=== PATIENT | male | born 1975 | race Caucasian/White ===

== ENCOUNTER 2017-04-25 23:33 | Inpatient (IN) | payer OTHER ==
[~2017-04-25] VITALS: Ht 167.6 cm; Wt 105.0 kg
--- NOTE | 2017-04-26 00:05 | EMERGENCY ROOM VISIT NOTE ---
History Report prepared by Scribe: Rianna Humphries Under the Supervision of: Dr. Benji Hobbs D.O. First contact with patient: 23:35 Chief Complaint: MENTAL HEALTH EVALUATION Stated Complaint: MENTAL HEALTH History of Present Illness The patient is a 41 year old male who presents to the Emergency Room for a mental health evaluation. The patient was brought in by EMS from a [employer] bus stop. The patient is from [place]. He states he was on a bus trip trying to get to [place] when he became paranoid, depressed, anxious, and suicidal because he was "receiving threats". He also states that he gets threatened because he is homosexual. The patient has a history of schizophrenia, anxiety, depression, and paranoia. He states he has tried every psychiatric medication and none of them have worked. Per patient's luggage, he is coming from [facility]. Source of History: patient History Limited By: other (patient's condtion) Review of Systems ROS limited secondary to patient's mental status. Past Medical & Surgical Medical Problems: (1) Anxiety (2) Depression (3) Paranoia (4) Schizophrenia Family History Limited secondary to patient's mental status. Social History Limited secondary to patient's mental status. Current/Historical Medications No Active Prescriptions or Reported Meds Allergies Coded Allergies: No Known Allergies (Unverified , 04/26/17) Physical Exam Vital Signs Date Time Temp Pulse Resp B/P (MAP) Pulse Ox O2 Delivery O2 Flow Rate FiO2 04/26/17 03:02 36.8 76 20 127/92 04/25/17 23:57 36.8 76 20 127/92 94 Room Air Physical Exam GENERAL: Awake, alert, disheveled-appearing, in no distress HENT: Normocephalic, atraumatic. Oropharynx unremarkable. EYES: Normal conjunctiva. Sclera non-icteric. NECK: Supple. No nuchal rigidity. FROM. No JVD. RESPIRATORY: Clear to auscultation. CARDIAC: Regular rate, normal rhythm. Extremities warm and well perfused. Pulses equal. ABDOMEN: Soft, non-distended. No tenderness to palpation. No rebound or guarding. No masses. RECTAL: Deferred. MUSCULOSKELETAL: Chest examination reveals no tenderness. The back is symmetrical on inspection without obvious abnormality. There is no CVA tenderness to palpation. No joint edema. LOWER EXTREMITIES: Calves are equal size bilaterally and non-tender. No edema. No discoloration. NEURO: Tangential, paranoid, flight of ideas. SKIN: No rash or jaundice noted. Medical Decision & Procedures Laboratory Results 04/26/17 00:37 Red Blood Count 4.42, Mean Corpuscular Volume 88.5, Mean Corpuscular Hemoglobin 28.7, Mean Corpuscular Hemoglobin Concent 32.5, Mean Platelet Volume 10.5, Neutrophils (%) (Auto) 42.4, Lymphocytes (%) (Auto) 44.3, Monocytes (%) (Auto) 10.1, Eosinophils (%) (Auto) 2.8, Basophils (%) (Auto) 0.3, Neutrophils # (Auto ) 3.06, Lymphocytes # (Auto) 3.20, Monocytes # (Auto) 0.73, Eosinophils # (Auto ) 0.20, Basophils # (Auto) 0.02 04/26/17 00:37 Test 04/25/17 23:54 04/26/17 00:37 Urine Color YELLOW Urine Appearance CLEAR (CLEAR) Urine pH 6.5 (4.5-7.5) Urine Specific [place] 1.021 (1.000-1.030) Urine Protein NEG (NEG) Urine Glucose (UA) NEG (NEG) Urine Ketones NEG (NEG) Urine Occult Blood NEG (NEG) Urine Nitrite NEG (NEG) Urine Bilirubin NEG (NEG) Urine Urobilinogen NEG (NEG) Urine Leukocyte Esterase NEG (NEG) Urine Opiates Screen NEG (NEG) Urine Methadone, Qualitative NEG (NEG) Urine Barbiturates NEG (NEG) Urine Phencyclidine (PCP) Level NEG (NEG) Ur Amphetamine/Methamphetamine NEG (NEG) MDMA (Ecstasy) Screen NEG (NEG) Urine Benzodiazepines Screen NEG (NEG) Urine Cocaine Metabolite NEG (NEG) Urine Marijuana (THC) NEG (NEG) White Blood Count 7.22 K/uL (4.8-10.8) Red Blood Count 4.42 M/uL (4.7-6.1) Hemoglobin 12.7 g/dL (14.0-18.0) Hematocrit 39.1 % (42-52) Mean Corpuscular Volume 88.5 fL (80-100) Mean Corpuscular Hemoglobin 28.7 pg (25-34) Mean Corpuscular Hemoglobin Concent 32.5 g/dl (32-36) Platelet Count 237 K/uL (130-400) Mean Platelet Volume 10.5 fL (7.4-10.4) Neutrophils (%) (Auto) 42.4 % Lymphocytes (%) (Auto) 44.3 % Monocytes (%) (Auto) 10.1 % Eosinophils (%) (Auto) 2.8 % Basophils (%) (Auto) 0.3 % Neutrophils # (Auto) 3.06 K/uL (1.4-6.5) Lymphocytes # (Auto) 3.20 K/uL (1.2-3.4) Monocytes # (Auto) 0.73 K/uL (0.11-0.59) Eosinophils # (Auto) 0.20 K/uL (0-0.5) Basophils # (Auto) 0.02 K/uL (0-0.2) RDW Standard Deviation 43.7 fL (36.4-46.3) RDW Coefficient of Variation 13.5 % (11.5-14.5) Immature Granulocyte % (Auto) 0.1 % Immature Granulocyte # (Auto) 0.01 K/uL (0.00-0.02) Anion Gap 5.0 mmol/L (3-11) Est Creatinine Clear Calc Drug Dose 122.7 ml/min Estimated GFR () 122.2 Estimated GFR (Non- 105.5 BUN/Creatinine Ratio 14.3 (10-20) Calcium Level 8.8 mg/dl (8.5-10.1) Total Bilirubin 0.3 mg/dl (0.2-1) Direct Bilirubin 0.1 mg/dl (0-0.2) Aspartate Amino Transf (AST/SGOT) 17 U/L (15-37) Alanine Aminotransferase (ALT/SGPT) 18 U/L (12-78) Alkaline Phosphatase 83 U/L (45-117) Total Protein 7.3 gm/dl (6.4-8.2) Albumin 3.3 gm/dl (3.4-5.0) Thyroid Stimulating Hormone (TSH) 4.030 uIu/ml (0.300-4.500) Ethyl Alcohol mg/dL < 3.0 mg/dl (0-3) Laboratory results reviewed by vt ED Course 2341: The patient was evaluated in room A7. A complete history and physical exam was performed. 0257: Upon reexamination, the patient was resting comfortably. The patient will be evaluated for further management. Medical Decision Differential diagnosis: Etiologies such as mood disorder, infection, hypoglycemia, electrolyte abnormalities, cardiac sources, intracerebral event, toxicologic, neurologic, as well as others were entertained. Pt medically clear for psych admit at 245am; stable throughout ED course Medication Reconcilliation Current Medication List: was personally reviewed by me Blood Pressure Screening Patient's blood pressure: Normal blood pressure Impression Primary Impression: Acute paranoia Additional Impression: Acute schizophrenia Scribe Attestation The scribe's documentation has been prepared under my direction and personally reviewed by me in its entirety. I confirm that the note above accurately reflects all work, treatment, procedures, and medical decision making performed by me. Departure Information Dispostion Admitted as an inpatient Prescriptions No Active Prescriptions or Reported Meds Referrals No Doctor, Assigned (PCP) Patient Instructions My [facility] Problem Qualifiers
[2017-04-26 00:15] LABS: URINE APPEARANCE CLEAR (CLEAR); URINE BILIRUBIN NEG (NEG); URINE COLOR YELLOW; URINE NITRITE NEG (NEG); URINE PH 6.5 (4.5-7.5); URINE SPECIFIC GRAVITY 1.021 (1.000-1.030); UROBILINOGEN NEG (NEG)
[2017-04-26 00:17] LABS: MANUAL MICROSCOPIC REQUIRED? NO; REVIEW REQ? NO
[2017-04-26 00:45] LABS: BENZODIAZEPINE, URINE NEG (NEG); COCAINE,URINE NEG (NEG); PHENCYCLIDINE, URINE NEG (NEG)
[2017-04-26 01:04] LABS: BASO % 0.3 %; BASO ABS # 0.02 K/uL (0-0.2); COMPLETE YES; EOS % 2.8 %; HEMATOCRIT 39.1 % (42-52); IG% 0.1 %; LYMPH % 44.3 %; MEAN CELL VOLUME 88.5 fL (80-100); MEAN CORPUSCULAR HEMOGLOBIN 28.7 pg (25-34); MEAN CORPUSCULAR HGB CONC 32.5 g/dl (32-36); MEAN PLATELET VOLUME 10.5 fL (7.4-10.4); MONO % 10.1 %; NEUT % 42.4 %; PLATELET COUNT 237 K/uL (130-400); RED BLOOD COUNT 4.42 M/uL (4.7-6.1); WHITE BLOOD COUNT 7.22 K/uL (4.8-10.8)
[2017-04-26 01:24] LABS: BUN/CREATININE RATIO 14.3 (10-20); CALCIUM 8.8 mg/dl (8.5-10.1); CREATININE 0.89 mg/dl (0.60-1.40); POTASSIUM 3.6 mmol/L (3.5-5.1)
[2017-04-26 01:34] LABS: THYROID STIMULATING HORMONE 4.03 uIu/ml (0.300-4.500)
[2017-04-26] MEDS ORDERED: NURSING VERBAL MED ORDER ONE (03:00)
[2017-04-26 03:02] VITALS: BP 127/92; PULSE 76; TEMP 36.8; BMI 37.4; BMI 38.5
[2017-04-26] MEDS ORDERED: MAGNESIUM HYDROXIDE SUSP 30 ML UDC PO PRN (03:45)
[2017-04-26] MEDS ORDERED: ACETAMINOPHEN 325 MG TAB PO PRN (03:45)
[2017-04-26] MEDS ORDERED: BISMUTH SUBSALICYLATE PER ML OMNICELL CHARGE PO PRN (03:45)
[2017-04-26] MEDS ORDERED: ALUMINUM/MAGNESIUM SUSP 30 ML UDC PO PRN (03:45)
[2017-04-26] MEDS ORDERED: hydrOXYzine HCL 25 MG TAB PO PRN ×2 (03:45)
[2017-04-26] MEDS ORDERED: SODIUM CHLORIDE 0.65% NA SOLN 45 ML (OCEAN) PRN (03:45)
[2017-04-26 03:55] VITALS: O2SAT 98
[2017-04-26 06:30] VITALS: BP_SYST 127; BP_SYST 141; BP_DIAS 108; BP_DIAS 92; PULSE 76; TEMP 36.8
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
[2017-04-26] MEDS ORDERED: RISPERIDONE ODT 1MG PO ONE (11:53)
[2017-04-26] MEDS ORDERED: RISPERIDONE ODT 0.5MG PO PRN (12:00)
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
[2017-04-26] MEDS: RISPERIDONE ODT 1MG PO SCH (20:51)
[2017-04-27 06:48] VITALS: BP_SYST 125; BP_SYST 126; BP_DIAS 82; BP_DIAS 86; PULSE 66; PULSE 77; TEMP 36.4
[2017-04-27] MEDS ORDERED: CGN1 PO (07:38)
[2017-04-27] MEDS ORDERED: GABA-112 PO (07:38)
[2017-04-27] MEDS ORDERED: RISP3TAB12 PO (07:39)
[2017-04-27] MEDS ORDERED: TRAZ50TA35 PO (07:40)
[2017-04-27] MEDS ORDERED: RSPI25 (07:40)
[2017-04-27] MEDS: RISPERIDONE ODT 1MG PO SCH ×2 (08:19→21:02)
--- NOTE | 2017-04-27 12:39 | Psychiatric Progress Notes ---
Progress Note Date of Service Apr 27, 2017. Interval History Tristin Jacobs is a 41-year-old male admitted voluntarily [place] the bus [place] paranoid. It is unclear where his home actually is but he was most recently in [place] and reports a diagnosis of schizophrenia. He is admitted to our unit on a voluntary basis and is being housed in a medically necessary private room. Information is gathered from the patient and not necessarily considered to be reliable. Chief Complaint "Still a little bit anxious, my plan is to go back to [facility]". Subjective Patient was seen & assessed interval progress reviewed with the treatment team. Staff report the patient has been calm and cooperative, is taking medication, but is disorganized, and has difficulty with discharge planning, as he is homeless, and talks about going to various cities in different places across the country. It is not clear where he is actually from. He states that he wants to go back to [facility], even though he just came from there on the bus, and then plans to go to [facility], and then on to [place] "where I want to settle down." He says that he prefers to backtrack and take this route to [place] because "I feel safe there." He also states he feels safe in the hospital, and denies hallucinations, suicidal thoughts, and homicidal thoughts. He repeats the same phrases over and over, talking about "falling into the hands of the knife and the gun," and a list of "cities to avoid." He repeatedly states the day, date, and year, his name, and his birthdate and age. He knows that he is in [place] "where [facility] is at, but I'm not in college." He thinks medications are helping him, and denies side effects. He cannot state how he will get medicine outside of the hospital, or where he could follow up for outpatient care. Sleep Information Total Hours of Sleep: 6.75 Meal Information Percent of Breakfast Consumed: 100 Percent of Lunch Consumed: 100 Percent of Dinner Consumed: 100 Mental Status Exam During interview pt is: alert and oriented, cooperative Appearance: appropriately dressed (jeans that are too big and falling down and a T-shirt), disheveled, other (appears much older than stated age, hair is wet but tangled) Eye contact is: good Motor behavior is: steady gait & station, no abnormal motor movements Speech: other (repetitious, rapid, at times becomes nonsensical) Affect: anxious, other (stable) Mood is: anxious Thought process: tangential, flight of ideas, incoherent, word salad Thought content: delusions (that he would be harmed by gun or knife, especially in certain cities) Suicidal thought are: denied Homicidal thoughts are: denied Hallucinations: auditory (says he heard a child's voice telling him that he would be confronted with a knife or a gun in [place]), denies visual Cognition: other (all spheres impaired by psychosis) Intelligence estimated to be: below average Insight: severely impaired Judgement: severely impaired Impression 41-year-old gentleman who self reports a diagnosis of schizophrenia, brought to our hospital by police after he got off at the bus station and appeared to be psychotic. We are having trouble getting any reliable information out of him but there are some discharge instructions from the hospital in [place] and he signed a release of information, but records have not yet been received. On admission he was started on Risperdal 1 mg twice a day, which she is taking and tolerating well. He says that he is on his way to [facility]. We will need to have a great deal more information in order to develop an outpatient plan. He is being cooperative with our program here and is willing to take medications. At this time, the patient requires inpatient mental health treatment due to the severity of his illness and inability to manipulate information in a reality based manner Plan (1) Schizophrenia 04/26/17 - start Risperdal 1 mg twice a day. Would ideally like to see him on an injectable if he is in a stable living environment - Every 15 minute checks for safety - Obtain supplemental information from the hospital from which he has discharge instructions - Will perform fasting lipid panel and fasting glucose for monitoring on atypicals - Encourage participation in group and individual counseling, as tolerated - The patient wishes to travel by bus to [place]. He says he has Social Security disability but this will need further exploration - He reports he has a mother in [place] in a mcc. Explore whether she is a possible source of information -Reality testing 04/27 - Continue risperidone. Explore options for long-acting injectable versus ability to get oral medicine outside the hospital. Visit Code E&M Code: 97022 Inventory Assets Strengths: Willingness for treatment, has an income on disability Needs: Treatment compliance Risk Factors Assessment Male: Yes : Yes /single/: Yes Higher / Fall in social status: No Health problems: No Mental Health Diagnoses: Yes Previous psychiatric stay: Yes Protective Factors Assessment Hindu beliefs: No : No Responsible for young children: No Employed: No Stable relationships: No Supportive family: No Good rapport with provider: No Data Vital Signs Last 24 Hrs: Date Time Temp Pulse Resp B/P (MAP) Pulse Ox O2 Delivery O2 Flow Rate FiO2 04/27/17 06:48 36.4 66 16 125/82 77 126/86 Meds Administered Last 24 Hrs: Meds Administered (Past 24Hrs) Medications (Trade) Dose Ordered Sig/Lakia Route Start Time Stop Time Status Last Admin Dose Admin Risperidone (Risperdal M Tab) 1 mg BID PO 04/26/17 22:00 05/26/17 21:59 04/27/17 08:19 1 MG Risperidone (Risperdal M Tab) 1 mg 1153 ONCE PO 04/26/17 11:53 04/26/17 12:10 DC 04/26/17 12:48 1 MG Risperidone (Risperdal M Tab) 0.5 mg TID PRN PO 04/26/17 12:00 05/26/17 11:59 04/26/17 16:38 0.5 MG Lab Results Last 24 Hrs: Last 24 Hours Test 04/27/17 06:05 Fasting Glucose 92 mg/dl Triglycerides Level 107 mg/dl Cholesterol Level 148 mg/dl HDL Cholesterol 50 mg/dl LDL Cholesterol, Calculated 77 mg/dl VLDL Cholesterol, Calculated 21 mg/dl Cholesterol/HDL Ratio 3.0
[2017-04-28 01:49] VITALS: Ht 167.6 cm; Wt 105.0 kg
[2017-04-28 06:56] VITALS: BP_SYST 115; BP_SYST 119; BP_DIAS 80; BP_DIAS 83; PULSE 103; PULSE 61; TEMP 36.3
[2017-04-28] MEDS: RISPERIDONE ODT 1MG PO SCH ×2 (08:33→21:29)
--- NOTE | 2017-04-28 10:00 | Psychiatric Progress Notes ---
Progress Note Date of Service Apr 28, 2017. Interval History Tristin Jacobs is a 41-year-old male admitted voluntarily after having been found at the bus [place] paranoid. It is unclear where his home actually is but he was most recently in [place] and reports a diagnosis of schizophrenia. He is admitted to our unit on a voluntary basis and is being housed in a medically necessary private room. Information is gathered from the patient and not necessarily considered to be reliable. Chief Complaint "Good.". Subjective Patient was seen & assessed interval progress reviewed with Treatment Team. Tristin says that he is doing well, and has called his bank to verify how much money he has in his account. He says that he has enough money for the bus ticket to [place] where he can get the bus to [place], but he doesn't want to go through [place] or [place] where he will be exposed to "the gun and knife". He says that he has scary conversations in his head but denies visual hallucinations. He says that he feels safe here and that has allowed his thoughts to be more organized. He agrees that he needs to remain on his meds. He denies side effects to meds, and is eating and sleeping well. Review of Systems Constitutional: No fever, No chills, No sweats, No weight loss, No weakness, No fatigue, No problem reported ENT: No hearing loss, No unusual epistaxis, No nasal symptoms, No sore throat, No tinnitus, No dental problems, No trouble swallowing, No problem reported Respiratory: No cough, No sputum, No wheezing, No shortness of breath, No dyspnea on exertion, No dyspnea at rest, No hemoptysis, No problem reported Cardiovascular: No chest pain, No orthopnea, No PND, No edema, No claudication , No palpitations, No problem reported Abdomen: No pain, No nausea, No vomiting, No diarrhea, No constipation, No GI bleeding, No problem reported Musculoskeletal: No joint pain, No muscle pain, No swelling, No calf pain, No problem reported Neurologic: No memory loss, No paralysis, No weakness, No numbness/tingling, No vertigo, No balance problems, No problem reported Psychiatric: + problem reported (scary conversations in his head) Integumentary: No rash, No itch, No new/changing skin lesions, No color change , No bleeding, No problem reported Sleep Information Total Hours of Sleep: 7.75 Meal Information Percent of Breakfast Consumed: 100 Percent of Lunch Consumed: 100 Percent of Dinner Consumed: 100 Mental Status Exam During interview pt is: alert and oriented, cooperative Appearance: appropriately dressed (jeans that are too big and falling down and a T-shirt), disheveled Eye contact is: good Motor behavior is: steady gait & station, no abnormal motor movements Speech: normal in rate, rhythm & volume Affect: blunted, anxious, other (stable) Mood is: other ("good") Thought process: goal directed Thought content: delusions (that he would be harmed by gun or knife, especially in certain cities) Suicidal thought are: denied Homicidal thoughts are: denied Hallucinations: auditory (scary conversations in his head), denies visual Cognition: memory grossly intact Intelligence estimated to be: below average Insight: impaired Judgement: impaired Impression The patient is much more organized today and able to have a good conversation. He has money for a bus ticket to [place] with plans to land in [place]. He remains delusional about "the gun and the knife" and plans to avoid the cities that he thinks that he will be exposed to them. He agrees to continue to take medications, and at time of discharge will provide him with a 24 hr. If his progress continues we may be able to consider discharge in the next few days. Plan (1) Schizophrenia 04/26/17 - start Risperdal 1 mg twice a day. Would ideally like to see him on an injectable if he is in a stable living environment - Every 15 minute checks for safety - Obtain supplemental information from the hospital from which he has discharge instructions - Will perform fasting lipid panel and fasting glucose for monitoring on atypicals - Encourage participation in group and individual counseling, as tolerated - The patient wishes to travel by bus to [place]. He says he has Social Security disability but this will need further exploration - He reports he has a mother in [place] in a retirement. Explore whether she is a possible source of information -Reality testing 04/27 - Continue risperidone. Explore options for long-acting injectable versus ability to get oral medicine outside the hospital. 04/28 - Continue risperdal 1 mg BID - Explore the timing of buses to [place]. Visit Code E&M Code: 75183 Inventory Assets Strengths: Willingness for treatment, has an income on disability Needs: Treatment compliance Risk Factors Assessment Male: Yes : Yes /single/: Yes Higher / Fall in social status: No Health problems: No Mental Health Diagnoses: Yes Previous psychiatric stay: Yes Protective Factors Assessment Alevism beliefs: No : No Responsible for young children: No Employed: No Stable relationships: No Supportive family: No Good rapport with provider: No Data Vital Signs Last 24 Hrs: Date Time Temp Pulse Resp B/P (MAP) Pulse Ox O2 Delivery O2 Flow Rate FiO2 04/28/17 06:56 36.3 61 18 119/83 103 115/80 Meds Administered Last 24 Hrs: Meds Administered (Past 24Hrs) Medications (Trade) Dose Ordered Sig/Lakia Route Start Time Stop Time Status Last Admin Dose Admin Risperidone (Risperdal M Tab) 1 mg BID PO 04/26/17 22:00 05/26/17 21:59 04/28/17 08:33 1 MG Risperidone (Risperdal M Tab) 1 mg 1153 ONCE PO 04/26/17 11:53 04/26/17 12:10 DC 04/26/17 12:48 1 MG Risperidone (Risperdal M Tab) 0.5 mg TID PRN PO 04/26/17 12:00 05/26/17 11:59 04/26/17 16:38 0.5 MG Lab Results Last 24 Hrs: 04/26/17 00:37 Red Blood Count 4.42, Mean Corpuscular Volume 88.5, Mean Corpuscular Hemoglobin 28.7, Mean Corpuscular Hemoglobin Concent 32.5, Mean Platelet Volume 10.5, Neutrophils (%) (Auto) 42.4, Lymphocytes (%) (Auto) 44.3, Monocytes (%) (Auto) 10.1, Eosinophils (%) (Auto) 2.8, Basophils (%) (Auto) 0.3, Neutrophils # (Auto ) 3.06, Lymphocytes # (Auto) 3.20, Monocytes # (Auto) 0.73, Eosinophils # (Auto ) 0.20, Basophils # (Auto) 0.02 04/26/17 00:37 Test 04/25/17 23:54 04/26/17 00:37 04/27/17 06:05 Urine Color YELLOW Urine Appearance CLEAR (CLEAR) Urine pH 6.5 (4.5-7.5) Urine Specific [place] 1.021 (1.000-1.030) Urine Protein NEG (NEG) Urine Glucose (UA) NEG (NEG) Urine Ketones NEG (NEG) Urine Occult Blood NEG (NEG) Urine Nitrite NEG (NEG) Urine Bilirubin NEG (NEG) Urine Urobilinogen NEG (NEG) Urine Leukocyte Esterase NEG (NEG) Urine Opiates Screen NEG (NEG) Urine Methadone, Qualitative NEG (NEG) Urine Barbiturates NEG (NEG) Urine Phencyclidine (PCP) Level NEG (NEG) Ur Amphetamine/Methamphetamine NEG (NEG) MDMA (Ecstasy) Screen NEG (NEG) Urine Benzodiazepines Screen NEG (NEG) Urine Cocaine Metabolite NEG (NEG) Urine Marijuana (THC) NEG (NEG) White Blood Count 7.22 K/uL (4.8-10.8) Red Blood Count 4.42 M/uL (4.7-6.1) Hemoglobin 12.7 g/dL (14.0-18.0) Hematocrit 39.1 % (42-52) Mean Corpuscular Volume 88.5 fL (80-100) Mean Corpuscular Hemoglobin 28.7 pg (25-34) Mean Corpuscular Hemoglobin Concent 32.5 g/dl (32-36) Platelet Count 237 K/uL (130-400) Mean Platelet Volume 10.5 fL (7.4-10.4) Neutrophils (%) (Auto) 42.4 % Lymphocytes (%) (Auto) 44.3 % Monocytes (%) (Auto) 10.1 % Eosinophils (%) (Auto) 2.8 % Basophils (%) (Auto) 0.3 % Neutrophils # (Auto) 3.06 K/uL (1.4-6.5) Lymphocytes # (Auto) 3.20 K/uL (1.2-3.4) Monocytes # (Auto) 0.73 K/uL (0.11-0.59) Eosinophils # (Auto) 0.20 K/uL (0-0.5) Basophils # (Auto) 0.02 K/uL (0-0.2) RDW Standard Deviation 43.7 fL (36.4-46.3) RDW Coefficient of Variation 13.5 % (11.5-14.5) Immature Granulocyte % (Auto) 0.1 % Immature Granulocyte # (Auto) 0.01 K/uL (0.00-0.02) Anion Gap 5.0 mmol/L (3-11) Est Creatinine Clear Calc Drug Dose 122.7 ml/min Estimated GFR () 122.2 Estimated GFR (Non- 105.5 BUN/Creatinine Ratio 14.3 (10-20) Calcium Level 8.8 mg/dl (8.5-10.1) Total Bilirubin 0.3 mg/dl (0.2-1) Direct Bilirubin 0.1 mg/dl (0-0.2) Aspartate Amino Transf (AST/SGOT) 17 U/L (15-37) Alanine Aminotransferase (ALT/SGPT) 18 U/L (12-78) Alkaline Phosphatase 83 U/L (45-117) Total Protein 7.3 gm/dl (6.4-8.2) Albumin 3.3 gm/dl (3.4-5.0) Thyroid Stimulating Hormone (TSH) 4.030 uIu/ml (0.300-4.500) Ethyl Alcohol mg/dL < 3.0 mg/dl (0-3) Fasting Glucose 92 mg/dl (70-99) Triglycerides Level 107 mg/dl (0-150) Cholesterol Level 148 mg/dl (0-200) HDL Cholesterol 50 mg/dl LDL Cholesterol, Calculated 77 mg/dl VLDL Cholesterol, Calculated 21 mg/dl Cholesterol/HDL Ratio 3.0
[2017-04-29 06:38] VITALS: BP_SYST 125; BP_SYST 145; BP_DIAS 86; BP_DIAS 90; PULSE 88; PULSE 99; TEMP 36.5
[2017-04-29] MEDS: RISPERIDONE ODT 1MG PO SCH (08:21)
[2017-04-29] MEDS ORDERED: RISPERIDONE ODT 1MG PO SCH (09:00)
[2017-04-29] MEDS ORDERED: RISP1TAB18 PO (09:48)
[2017-04-29] MEDS ORDERED: HLD5 PO (09:48)
--- NOTE | 2017-04-29 10:01 | Discharge Instructions ---
Discharge Information Report Includes Report will include the: Discharge Instructions & Summary Admission Admission Date / Time: Apr 26, 2017 at 02:51 Reason for Admission: Paranoid Schizophrenia Discharge Discharge Diagnosis / Problem: Paranoid schizophrenia Condition at Discharge: Fair Discharge Goals Goal(s): Decrease discomfort, Improve disease control, Prevent Disease Progression Activity Recommendations Activity Limitations: resume your previous activity . Instructions / Follow-Up Instructions / Follow-Up . SPECIAL CARE INSTRUCTIONS: 1. Follow through with your scheduled aftercare appointments. If unable to keep an appointment, please call to reschedule. 2. Take your medication only as prescribed. Medication should not be changed or stopped without the approval of your doctor. In the event of worsening symptoms or concerns about side effects, contact your doctor immediately. 3. Utilize new healthy coping skills, anger management skills, and stress management skills learned during your hospitalization. Journal feelings and process them with a support person. Identify stressors or situations that may result in relapse, deterioration or inappropriate behaviors and develop a plan to deal with those issues. 4. If your coping skills are ineffective and you are in crisis, contact your outpatient providers for direction. If unable to reach your providers, please call the CAN HELP LINE AT or go to the closest Emergency Room. 5. Avoid alcohol and un-prescribed drugs. 6. You have been provided with the Mental Health Advance Directives Pamphlet for your review. AFTERCARE APPOINTMENTS: * Please call your insurance company prior to your scheduled appointment to confirm your aftercare providers are covered. Take your insurance information to your appointments. . Discharge / Aftercare Planning Psychiatrist: Name: 24 hr Help Crisis Line Other: Name of Appointment #1: [facility] Appointment #1 Notes: [address] [place] [address] . Follow-Up Care Plan for Follow-Up Care: Patient is travelling by bus to [place] where he plans to take up residence. He has been provided a 24 hr supply of meds, and prescriptions to fill. Current Hospital Diet Patient's current hospital diet: Regular Diet Discharge Diet Recommended Diet: Regular Diet Procedures Procedures Performed: No Pending Studies Pending Studies at Discharge: No Medical Emergencies . Who to Call and When: Medical Emergencies: For questions or emergencies related to your hospital stay, please contact the Inpatient Behavioral Health Unit at [phone]. A educational speech language clinician is on-call 14/03 for the Behavioral Health Unit for emergencies At any time you feel your situation is an emergency, you may also call 911 immediately. . Non-Emergent Contact Non-Emergency issues call your: Psychiatrist Contact Number: The patient will be provided with emergency numbers for the [facility] Advance Directives Existing Advance Directive: No Do You Have an Existing Mental: No Existing Living Will: No Existing Power of Tennis Player: No Advance Directives Info Given: To Pt/S.O. Advance Directives Reason: Declines as Mental Health Visit. Discharge Summary Admission HPI Per the Admitting provider: The patient is a 41-year-old gentleman who is having trouble giving an organized history. He tends to dissolve into echolalia and wanting to repeat his stories that makes little sense. From what we can gather, the patient had most recently been living in [place]. He admits that he was hospitalized there and then referred to what sounds like a fpc. He decided to leave there because he was getting "anxious", "claustrophobic". He apparently got on a bus that took him to [place] and was bound for [place] via [place]. He had auditory hallucinations of a boy saying that he would be confronted with a gun or a knife in [place] and so got off before [place] which was apparently in state [place]. He talks at times very rapidly and incessantly, talking over me as I attempt to ask questions. He is cooperative in his demeanor. His thoughts are moving quite fast and he bounces from topic to topic, talking about [place] being the only good city, that he has a mother in a mcc in [place] and that he is on disability and gets his money through an [employer] card. He wants to be able to continue on to [place] as he knows of a hotel where he had once lived there that he wants to return to. He indicates he was first diagnosed with schizophrenia at about the age of 17. He makes frequent references to the fact that he is humphries. He is poorly able to answer even direct questions without perseverance and redirection. He indicates that he is anxious. He denies any visual hallucinations. He endorses that he sometimes does have suicidal ideation. He says that he has been on multiple medications in the past and thinks that may be Depakote was good for him. He repeatedly makes sexual references Hospital Course (1) Schizophrenia 04/26/17 - start Risperdal 1 mg twice a day. Would ideally like to see him on an injectable if he is in a stable living environment - Every 15 minute checks for safety - Obtain supplemental information from the hospital from which he has discharge instructions - Will perform fasting lipid panel and fasting glucose for monitoring on atypicals - Encourage participation in group and individual counseling, as tolerated - The patient wishes to travel by bus to [place]. He says he has Social Security disability but this will need further exploration - He reports he has a mother in [place] in a mcc. Explore whether she is a possible source of information -Reality testing 04/27 - Continue risperidone. Explore options for long-acting injectable versus ability to get oral medicine outside the hospital. 04/28 - Continue risperdal 1 mg BID - Explore the timing of buses to [place]. Risk Factors Assessment Male: Yes : Yes /single/: Yes Higher / Fall in social status: No Health problems: No Mental Health Diagnoses: Yes Previous psychiatric stay: Yes Protective Factors Assessment Church beliefs: No : No Responsible for young children: No Employed: No Stable relationships: No Supportive family: No Good rapport with provider: No Day of Discharge Assessment COURSE OF HOSPITALIZATION: The patient was on our unit for 3 days. He was brought to our hospital by the police after having been found at the bus station looking disorganized. He was able to tell us he has a history of paranoid schizophrenia but on admission looked very much like a disorganized schizophrenic and was rapidly and his speech, and echolalic and not reality based. He had delusions that he was to be harmed by [place] a knife or a gun when he reached [place] and so had decided to get off the bus before reaching [place]. After admission it was found that he had discharge papers from the hospital in [place]. He had also [facility] [place]. He recently been on Zyprexa but then switched to Risperdal and Risperdal constant stop. The patient is apparently from [place] and at some point started a bus tour across the [facility]. He has plans to go to [place] which he is telling us he is familiar with and would like to establish residency there. He has no family, no contacts, no permanent home. During the course of his stay, he was provided with Risperdal 1 mg twice a day which significantly improved his organization. Within 24 hours he was better able to carry on a conversation, speech was less rapid. He continued to have delusions that he would be harmed by guns or knives if he went to certain cities. It was not clear whether this was a chronic delusion or not. He didn't feel safe on the unit, and requested to be discharged to continue his travels to [place]. He was able to explore how much money he had left on his [employer] card and new how to obtain a bus ticket. We therefore agreed that we would discharge him, provide him with a 24-hour supply of medicines and prescriptions for the Risperdal that he has been taking as well as a when necessary prescription for Haldol which may be less expensive for him to purchase until his money is renewed the first of the month. We decided against continuing it an injectable medication as we are unclear when or where he will get his next follow-up injection. He was behaviorally well controlled, attended group programming. He denied any suicidal or homicidal ideations. He denied any visual experiences although did say that he had "scary conversations" in his head which improved by discharge. Some of the information gleaned from his discharge instructions were that he has a mother in [place] who is in a mcc. She had been contacted, had no documentation including certificate or other photo ID. She apparently has dementia and is not capable of giving any background information. DAY OF DISCHARGE ASSESSMENT: Today the patient is requesting discharge and says that he feels safe and capable of resuming his boss travel to [place]. He is happy, affect is smiling. He denies suicidal or homicidal ideation and today is saying that he has no hallucinations at all. Today he is casually dressed in a T-shirt and jeans that are falling down because he has no belt. His hair is in disarray as is his ma but he is clean and recently out of the shower. His gait and station are within normal limits. Eye contact is good. Speech is of normal rate volume and tone. Thoughts are organized, goal directed. Recent and remote memory are intact per conversation. Intelligence is estimated to be below average. Insight and judgment are improved over admission. Laboratory Test 04/25/17 23:54 04/26/17 00:37 04/27/17 06:05 Urine Color YELLOW Urine Appearance CLEAR Urine pH 6.5 Urine Specific [place] 1.021 Urine Protein NEG Urine Glucose (UA) NEG Urine Ketones NEG Urine Occult Blood NEG Urine Nitrite NEG Urine Bilirubin NEG Urine Urobilinogen NEG Urine Leukocyte Esterase NEG Urine Opiates Screen NEG Urine Methadone, Qualitative NEG Urine Barbiturates NEG Urine Phencyclidine (PCP) Level NEG Ur Amphetamine/Methamphetamine NEG MDMA (Ecstasy) Screen NEG Urine Benzodiazepines Screen NEG Urine Cocaine Metabolite NEG Urine Marijuana (THC) NEG White Blood Count 7.22 Red Blood Count 4.42 Hemoglobin 12.7 Hematocrit 39.1 Mean Corpuscular Volume 88.5 Mean Corpuscular Hemoglobin 28.7 Mean Corpuscular Hemoglobin Concent 32.5 Platelet Count 237 Mean Platelet Volume 10.5 Neutrophils (%) (Auto) 42.4 Lymphocytes (%) (Auto) 44.3 Monocytes (%) (Auto) 10.1 Eosinophils (%) (Auto) 2.8 Basophils (%) (Auto) 0.3 Neutrophils # (Auto) 3.06 Lymphocytes # (Auto) 3.20 Monocytes # (Auto) 0.73 Eosinophils # (Auto) 0.20 Basophils # (Auto) 0.02 RDW Standard Deviation 43.7 RDW Coefficient of Variation 13.5 Immature Granulocyte % (Auto) 0.1 Immature Granulocyte # (Auto) 0.01 Sodium Level 140 Potassium Level 3.6 Chloride Level 106 Carbon Dioxide Level 29 Anion Gap 5.0 Blood Urea Nitrogen 13 Creatinine 0.89 Est Creatinine Clear Calc Drug Dose 122.7 Estimated GFR () 122.2 Estimated GFR (Non- 105.5 BUN/Creatinine Ratio 14.3 Random Glucose 94 Calcium Level 8.8 Total Bilirubin 0.3 Direct Bilirubin 0.1 Aspartate Amino Transferase (AST) 17 Alanine Aminotransferase (ALT) 18 Alkaline Phosphatase 83 Total Protein 7.3 Albumin 3.3 Thyroid Stimulating Hormone (TSH) 4.030 Ethyl Alcohol mg/dL < 3.0 Fasting Glucose 92 Triglycerides Level 107 Cholesterol Level 148 HDL Cholesterol 50 LDL Cholesterol, Calculated 77 VLDL Cholesterol, Calculated 21 Cholesterol/HDL Ratio 3.0 Total Time Total Time Spent (min): Greater than 30 minutes Total Time Included: examination of the patient, discharge planning, medication reconciliation, communication with other providers Tobacco Cessation at Discharge Smoking Status: Former Smoker FDA approved Prescription: non-smoker
== END 2017-04-29 13:20 | disposition home or self-care (01) | DRG 885 ==
LOC: EDBD 23:33 → C.EDA 23:35 → C.MHU 04-26 02:51
PROVIDERS: ADMIT Psychiatry & Neurology Child & Adolescent Psychiatry; ATTEND Psychiatry & Neurology Psychiatry
DX: F20.0 Paranoid schizophrenia (principal); F41.9 Anxiety disorder, unspecified; F32.9 Major depressive disorder, single episode, unspecified; Z87.891 Personal history of nicotine dependence